=== PATIENT | male | born 1965 ===

== ENCOUNTER 2017-07-03 20:47 | Emergency (ER) | payer BC ==
[2017-07-03 20:49] VITALS: BP 162/79; PULSE 112; RESP 16; TEMP 98.2; O2SAT 100
--- NOTE | 2017-07-03 20:56 | ED PDOC ---
HPI: Psych/Substance Abuse Time Seen by Provider: 07/03/17 20:51 Chief Complaint (Nursing): Alcohol Ingestion Chief Complaint (Provider): Alcohol Ingestion ED Caveat: Intoxicated History Per: EMS History/Exam Limitations: no limitations Modifying Factor(s): Alcohol Additional Complaint(s): Rhys Nash is a 51 year old male that was brought in by EMS after the police were called when he was found publicly intoxicated and sitting on the sidewalk. Patient admits to drinking alcohol, knows his address, is apologetic, and is requesting to go home. Past Medical History Reviewed: Historical Data, Nursing Documentation, Vital Signs Vital Signs: Last Vital Signs Temp 98.2 F 07/03/17 20:47 Pulse 112 H 07/03/17 20:47 Resp 16 07/03/17 20:47 BP 162/79 H 07/03/17 20:47 Pulse Ox 100 07/03/17 20:47 - Medical History PMH: Denies: Diabetes, Hepatitis, HIV, HTN, Seizures, Sexually Transmitted Disease - Family History Family History: States: Unknown Family Hx - Immunization History Hx Tetanus Toxoid Vaccination: No Hx Influenza Vaccination: No Hx Pneumococcal Vaccination: No - Home Medications Home Medications: Ambulatory Orders Medication Instructions Recorded No Known Home Med 04/12/17 - Allergies Allergies/Adverse Reactions: Allergies Allergy/AdvReac Type Severity Reaction Status Date / Time No Known Allergies Allergy Verified 04/12/17 11:45 Review of Systems ROS Statement: Except As Marked, All Systems Reviewed And Found Negative Psych: Negative for: Suicidal ideation Physical Exam - Reviewed Nursing Documentation Reviewed: Yes Vital Signs Reviewed: Yes - Physical Exam Appears: Positive for: Non-toxic, No Acute Distress (Patient is apologetic.) Head Exam: Positive for: ATRAUMATIC, NORMOCEPHALIC Skin: Positive for: Normal Color, Warm Eye Exam: Positive for: Normal appearance, EOMI, PERRL Cardiovascular/Chest: Positive for: Regular Rate, Rhythm. Negative for: Murmur Respiratory: Positive for: Normal Breath Sounds. Negative for: Wheezing Extremity: Positive for: Normal ROM Neurologic/Psych: Positive for: Alert, sales record clerk II-XII, Oriented, Gait (steady), Other (Patient speaks in clear and full sentences.). Negative for: Motor/ Sensory Deficits - ECG O2 Sat by Pulse Oximetry: 100 (RA) Pulse Ox Interpretation: Normal Medical Decision Making Medical Decision Making: Impression: Alcohol Ingestion Plan: * Patient is coherent, speaking full and clear sentences. Patient is stable for discharge home. Scribe Attestation: Documented by Cherelle Pugh, acting as a scribe for Kayla Hensley PA-C. Provider Scribe Attestation: All medical record entries made by the Scribe were at my direction and personally dictated by me. I have reviewed the chart and agree that the record accurately reflects my personal performance of the history, physical exam, medical decision making, and the department course for this patient. I have also personally directed, reviewed, and agree with the discharge instructions and disposition. Disposition - Clinical Impression Clinical Impression: Alcohol ingestion - Patient ED Disposition Is Patient to be Admitted: No - Disposition Disposition: Routine/Home Disposition Time: 21:20 Condition: STABLE Instructions: Alcohol Intoxication (ED) Forms: [employer] (Haitian) Print Language: CHINESE
== END 2017-07-03 21:50 | disposition home or self-care (01) ==
LOC: H.ER 20:47
DX: F10.10 Alcohol abuse, uncomplicated (principal)

== ENCOUNTER 2018-08-31 17:02 | Emergency (ER) | payer BC ==
--- NOTE | 2018-08-31 18:40 | ED PDOC ---
HPI: Psych/Substance Abuse Chief Complaint (Provider): alcohol abuse History Per: Patient History/Exam Limitations: no limitations Onset/Duration Of Symptoms: Hrs (today) Current Symptoms Are (Timing): Still Present Additional Complaint(s): Rhys Nash is a 53 year old male, with a past medical history of alcohol and opiate abuse, who was brought to the emergency department by EMS after patient was found face down on the ground today. Patient admits to drinking alcohol but denies any drug use. Patient noted to have an abrasion on the nose. No further medical complaints. PMD: None provided. <Melinda Moore - Last Filed: 09/01/18 00:19> <Jenny Morrison - Last Filed: 09/04/18 18:36> Time Seen by Provider: 08/31/18 17:16 Chief Complaint (Nursing): Alcohol Ingestion Past Medical History Reviewed: Historical Data, Nursing Documentation, Vital Signs Vital Signs: Last Vital Signs Temp 98.6 F 08/31/18 17:05 Pulse 94 H 08/31/18 17:05 Resp 19 08/31/18 17:05 BP 111/69 08/31/18 17:05 Pulse Ox 96 08/31/18 17:05 - Medical History PMH: No Chronic Diseases Denies: HIV, HTN, Seizures, Sexually Transmitted Disease - Surgical History Surgical History: No Surg Hx - Family History Family History: States: Unknown Family Hx - Social History Current smoker - smoking cessation education provided: Yes (Heavy smoker >10 cigarettes daily) Alcohol: > 2 Drinks/Day Drugs: Cannabis, Cocaine, Opiates - Immunization History Hx Tetanus Toxoid Vaccination: No Hx Influenza Vaccination: No Hx Pneumococcal Vaccination: No <Melinda Moore - Last Filed: 09/01/18 00:19> Vital Signs: Last Vital Signs Temp 98.0 F 09/01/18 06:01 Pulse 78 09/01/18 06:01 Resp 16 09/01/18 06:01 BP 125/86 09/01/18 06:01 Pulse Ox 97 09/01/18 06:02 <Jenny Morrison - Last Filed: 09/04/18 18:36> - Home Medications Home Medications: Ambulatory Orders Medication Instructions Recorded RX: No Known Home Med 04/12/17 - Allergies Allergies/Adverse Reactions: Allergies Allergy/AdvReac Type Severity Reaction Status Date / Time No Known Allergies Allergy Verified 04/12/17 11:45 Review of Systems ROS Statement: Except As Marked, All Systems Reviewed And Found Negative Constitutional: Positive for: Other (alcohol abuse) ENT: Positive for: Other (nose abrasion) <JayakristelMelinda Last Filed: 09/01/18 00:19> Physical Exam - Reviewed Nursing Documentation Reviewed: Yes Vital Signs Reviewed: Yes - Physical Exam Appears: Positive for: No Acute Distress Head Exam: Positive for: ATRAUMATIC, NORMOCEPHALIC Skin: Positive for: Normal Color, Warm, Dry Eye Exam: Positive for: Normal appearance, EOMI, PERRL Neck: Positive for: Painless ROM Cardiovascular/Chest: Positive for: Regular Rate, Rhythm. Negative for: Murmur Respiratory: Positive for: Normal Breath Sounds. Negative for: Respiratory Distress Gastrointestinal/Abdominal: Positive for: Normal Exam, Soft. Negative for: Tenderness, Other (ecchymosis) Back: Positive for: Normal Inspection. Negative for: Vertebral Tenderness Extremity: Positive for: Normal ROM (upper and lower extremities). Negative for: Tenderness, Deformity, Swelling Neurologic/Psych: Positive for: Alert <JayakristelMelinda Anderson - Last Filed: 09/01/18 00:19> - ECG O2 Sat by Pulse Oximetry: 96 (RA) Pulse Ox Interpretation: Normal <JayakristelMelinda Last Filed: 09/01/18 00:19> Medical Decision Making Medical Decision Making: Time: 17:16 Initial Impression: alcohol abuse Initial Plan: --Maxillofacial w/o contrast [CT] --Head w/o contrast [CT] --Alcohol serum --Ativan 2 mg IM --Reevaluation Facial CT with nasal bone fractures. Endorsed pending head CT and sobriety. Scribe Attestation: Documented by Dorian Taylor, acting as a scribe for Melinda Moore PA-C Provider Scribe Attestation: All medical record entries made by the Scribe were at my direction and personally dictated by me. I have reviewed the chart and agree that the record accurately reflects my personal performance of the history, physical exam, medical decision making, and the department course for this patient. I have also personally directed, reviewed, and agree with the discharge instructions and disposition. <Melinda Moore - Last Filed: 09/01/18 00:19> Disposition - Patient ED Disposition Is Patient to be Admitted: Transfer of Care - Disposition Disposition: Transfer of Care Disposition Time: 00:20 <Melinda Moore - Last Filed: 09/01/18 00:19> <Jenny Morrison - Last Filed: 09/04/18 18:36> - Clinical Impression Clinical Impression: Alcohol abuse with intoxication, Abrasion, Nasal bone fracture, Head injury - Disposition Referrals: [facility] [Outside] [facility] [Outside] Arpan Mathias MD [Staff Provider] - Condition: IMPROVED Instructions: Nose Fracture, Alcohol Use - When Is Drinking a Problem?, Closed Head Injury (DC) Forms: [facility] (Romanian) Addendum Addendum: 09/04/18 18:35 Reviewed chart. Agree with PA assessment. <Jenny Morrison - Last Filed: 09/04/18 18:36>
[2018-09-01 04:42] VITALS: RESP 16; O2SAT 97
--- NOTE | 2018-09-01 05:05 | ED PDOC ---
- ECG O2 Sat by Pulse Oximetry: 97 - Progress ED Course And Treament: 0000 Signed out to me pending CT head results and sobriety. On my initial evaluation, pt. in no distress. Sleeping comfortably. Easily arousable. 0220 CT head w/o contrast: no ICH. 0430 Still sleeping. 0600 Gait steady, unassisted. No slurred speech. Disposition - Clinical Impression Clinical Impression: Alcohol abuse with intoxication, Abrasion, Nasal bone fracture, Head injury - POA Present On Arrival: None - Disposition Referrals: [facility] [Outside] [facility] [Outside] Arpan Mathias MD [Staff Provider] - Disposition: Routine/Home Disposition Time: 06:00 Condition: IMPROVED Instructions: Nose Fracture, Alcohol Use - When Is Drinking a Problem?, Closed Head Injury (DC) Forms: [facility] (Turkmen)
[2018-09-01 06:02] VITALS: BP 125/86; PULSE 78; TEMP 98
--- NOTE | 2018-09-01 12:45 | CT ---
Date of service: 08/31/2018 PROCEDURE: CT HEAD WITHOUT CONTRAST. HISTORY: head injury, ETOH COMPARISON: None available. TECHNIQUE: Axial computed tomography images were obtained through the head/brain without intravenous contrast. Supplemental Coronal and Sagittal projections created and reviewed. Radiation dose: Total exam DLP = 922.82 mGy-cm. This CT exam was performed using one or more of the following dose reduction techniques: Automated exposure control, adjustment of the mA and/or kV according to patient size, and/or use of iterative reconstruction technique. FINDINGS: HEMORRHAGE: No intracranial hemorrhage. BRAIN: No mass effect or edema. No atrophy or chronic microvascular ischemic changes. VENTRICLES: Unremarkable. No hydrocephalus. CALVARIUM: Unremarkable. PARANASAL SINUSES: Unremarkable as visualized. No significant inflammatory changes. MASTOID AIR CELLS: Unremarkable as visualized. No inflammatory changes. OTHER FINDINGS: None. IMPRESSION: No acute intracranial abnormalities. No significant findings to account for the clinical presentation. Concordant results (preliminary interpretation) provided by [facility]. Procedure Completed: 23:20. Preliminary Report: Dictated and Authenticated: 00:24. Final Interpretation: 12:42 September 01, 2018
--- NOTE | 2018-09-01 12:52 | CT ---
Date of service: 08/31/2018 PROCEDURE: CT MAXILLOFACIAL BONES WITHOUT CONTRAST HISTORY: head injury, ETOH COMPARISON: None available. TECHNIQUE: Contiguous axial CT images of the maxillofacial bones were obtained. Coronal and sagittal reformats were generated. Radiation dose: Total exam DLP = 1645.95 mGy-cm. This CT exam was performed using one or more of the following dose reduction techniques: Automated exposure control, adjustment of the mA and/or kV according to patient size, and/or use of iterative reconstruction technique. FINDINGS: NASAL BONES: Acute bilateral nasal bone fractures. ORBITS: Unremarkable. PARANASAL SINUSES/ MASTOIDS: Chronic ethmoid air cell disease identified. MAXILLA: Unremarkable. MANDIBLE/ TEMPOROMANDIBULAR JOINTS: Unremarkable. SKULL BASE: Unremarkable. TEMPORAL BONES: Middle ears and mastoid grossly unremarkable. OTHER FINDINGS: None. IMPRESSION: Acute comminuted bilateral nasal bone fractures with associated moderate soft tissue swelling. Concordant results (preliminary interpretation) provided by [employer]. Procedure Completed: 23:26 Preliminary Report: Dictated and Authenticated: 00:12. Final Interpretation: 12:50.
== END 2018-09-01 06:26 | disposition home or self-care (01) ==
LOC: SUPCPDRO 17:02 → H.ER 17:02
DX: F10.129 Alcohol abuse with intoxication, unspecified (principal); S02.2XXA Fracture of nasal bones, initial encounter for closed fracture; S09.90XA Unspecified injury of head, initial encounter; W19.XXXA Unspecified fall, initial encounter; Y92.89 Other specified places as the place of occurrence of the external cause; F11.10 Opioid abuse, uncomplicated; F17.210 Nicotine dependence, cigarettes, uncomplicated
CPT/HCPCS: 70450; 70486; 82948; 96372; 99284; G0480; J2060